=== PATIENT | male | born 2000 | race Caucasian/White ===

== ENCOUNTER 2023-03-06 18:16 | Emergency (ER) | payer BC, SELFPAY ==
[2023-03-06 18:16] VITALS: BP 131/70; PULSE 72; RESP 18; TEMP 36.6; O2SAT 100
--- NOTE | 2023-03-06 18:57 | ED.GENADULT ---
HPI - General Adult General Chief complaint: Wound/Laceration Stated complaint: right hand laceration Time Seen by Provider: 03/06/23 18:57 History of Present Illness HPI narrative: The patient is a 22-year-old male who sustained a laceration to the base of the right thumb with a knife as he was working on a car. No loss of sensation. Has received his tetanus immunization for school. Full range of motion of his fingers. No other injuries. History of asthma but no wheezing. No other complaints. Related Data Allergies Allergy/AdvReac Type Severity Reaction Status Date / Time No Known Allergies Allergy Verified 03/06/23 18:26 Review of Systems Review of Systems: All systems reviewed & are unremarkable except as noted in HPI and below Constitutional: Constitutional: Reports as per HPI, Reports no additional constitutional complaints, Denies chills, Denies excessive sweating, Denies fatigue, Denies fever(s), Denies headache(s) and Denies weakness Eyes: Eyes: Reports as per HPI, Reports no additional eye complaints, Denies change in vision and Denies photophobia ENT: Reports system reviewed and no additional complaints, except as documented, Reports as per HPI, Denies dysphagia, Denies vertigo, Denies dizziness, Denies headache(s), Denies lip swelling, Denies nasal congestion, Denies sore throat, Denies throat swelling and Denies tongue swelling Cardiovascular: Cardiovascular: Reports as per HPI, Reports no additional cardiovascular complaints, Denies chest pain, Denies syncope, Denies rapid heart rate and Denies dyspnea Respiratory: Respiratory: Reports as per HPI, Reports no additional respiratory complaints, Denies chest congestion, Denies cough, Denies dyspnea and Denies wheezing Gastrointestinal: Gastrointestinal: Reports as per HPI, Reports no additional gastrointestinal complaints, Denies abdominal pain, Denies constipation, Denies dysphagia, Denies diarrhea, Denies nausea and Denies vomiting Genitourinary: Genitourinary: Reports as per HPI, Denies hematuria, Denies oliguria, Denies dysuria, Denies urinary frequency, Denies urinary incontinence and Denies urinary urgency Musculoskeletal: Musculoskeletal: Reports no additional musculoskeletal complaints, Denies back pain, Denies myalgias, Denies arthralgias, Denies joint swelling and Denies numbness Integumentary/Breasts: Skin/Breast: Reports system reviewed and no additional complaints, except as docu, Denies pruritus, Denies erythema, Denies rash and Denies skin ulcer Comments: Laceration of the base of the right thumb Neurologic: Reports system reviewed and no additional complaints, except as documented, Reports as per HPI, Denies confusion, Denies vertigo, Denies dizziness, Denies syncope, Denies headache(s), Denies focal weakness, Denies numbness and Denies weakness Psychiatric: Psychiatric: Reports as per HPI, Denies anxiety, Denies confusion, Denies depression, Denies homicidal ideation and Denies suicidal ideation Endocrine: Endocrine: Reports no additional endocrine complaints, Denies excessive sweating, Denies fatigue, Denies polydipsia and Denies polyuria Hematologic/Lymphatic: Hematologic/Lymphatic: Reports no additional hematologic/lymphatic complaints, Denies easy bleeding and Denies easy bruising Allergic/Immunologic: Allergic/Immunologic: Reports no additional allergic/immunologic complaints, Denies lip swelling, Denies throat swelling, Denies tongue swelling and Denies wheezing Exam Const: General: healthy appearing, no acute distress, alert and well nourished; No confusion or ill appearing Nutritional Appearance: well nourished Orientation/consciousness: patient oriented x3 and No confusion Limitations: no limitations HENMT: Head: normal to inspection Ears: external ears normal Face/Nose/Sinus: Normal external nose present and normal facial exam Face and sinus: normal facial exam Mouth: Yes Normal oral and palatal mucosa present and Yes moist mucous membr
[2023-03-06] MEDS: ACETAMINOPHEN 500 MG TABLET 1000 MG PO (19:18)
[2023-03-06] MEDS: IBUPROFEN 600 MG TABLET PO (19:19)
[2023-03-06] MEDS: CEPHALEXIN 500 MG CAPSULE PO (19:19)
[2023-03-06] MEDS: LIDOCAINE HCL 1% LOCAL INJ 10 ML VIAL INFILTRATE (19:19)
[2023-03-06] MEDS: NEOMYCIN/POLYMYXIN/BACITRACIN OINTMENT 15 GM TUBE 1 APPLIC TOPICAL (19:56)
[2023-03-06 20:06] VITALS: BP 100/66; PULSE 88; RESP 20; TEMP 36.7; O2SAT 100
== END 2023-03-06 20:08 | disposition home or self-care (01) ==
PROVIDERS: Emergency Provider Emergency Medicine
DX: S61.011A Laceration without foreign body of right thumb without damage to nail, initial encounter (principal); W26.0XXA Contact with knife, initial encounter
CPT/HCPCS: 12001; 99283; A9270

== ENCOUNTER 2023-03-16 12:25 | Emergency (ER) | payer BC, SELFPAY ==
[2023-03-16 12:28] VITALS: BP 113/74; PULSE 69; RESP 18; TEMP 36.8; O2SAT 99
--- NOTE | 2023-03-16 13:08 | ED.WOUNDLAC ---
HPI - Wound/Laceration General Chief Complaint: Wound/Laceration Stated Complaint: wound check Time Seen by Provider: 03/16/23 12:26 Source: patient Mode of arrival: ambulatory Limitations: no limitations History of Present Illness HPI narrative: patient had laceration that was repaired approximately 8 to 9 days ago in the ER and the patient did attempt to remove the sutures and the area looks relatively well approximated 1 suture remaining that he could not remove and that is white presents to the ER there is no drainage no redness no warmth or tenderness has good range of motion and his right thumb. Onset (ago): day(s) Location: other Extremity Location: Right: hand ( lateral thumb area) Related Data Home Medications Medication Instructions Recorded Confirmed No Home Medications 03/16/23 03/16/23 Allergies Allergy/AdvReac Type Severity Reaction Status Date / Time No Known Allergies Allergy Verified 03/06/23 18:26 Review of Systems Review of Systems: All systems reviewed & are unremarkable except as noted in HPI and below PMFSH Past Medical History Medical History Patient denies medical problems Exam Const: General: healthy appearing Nutritional Appearance: well nourished Orientation/consciousness: patient oriented x3 Limitations: no limitations HENMT: Head: normal to inspection Eyes: Conjunctivae: conjunctivae normal GI: GI Palp: Yes Soft to palpation Auscultation: normal bowel sounds Skin: Wounds: wounds noted Other: wound area looks relatively well approximated has 1 suture remaining on the lateral aspect of his right proximal thumb Neuro: General: patient oriented x3 Cranial nerves: Yes Nystagmus not present Speech: normal speech Extrem: General: normal to inspection Psych: Mental Status: mental status grossly normal Affect: normal affect Course Course Emergency Course: suture removed from the right proximal lateral thumb area patient tolerated the removal of the suture well no bleeding there is currently no drainage no warmth or tenderness. Has good range of motion with no numbness or tingling. Vital Signs Vital signs: Vital Signs Temperature 36.8 C 03/16/23 12:28 Pulse Rate 69 03/16/23 12:28 Respiratory Rate 18 03/16/23 12:28 Blood Pressure 113/74 03/16/23 12:28 Pulse Oximetry 99 03/16/23 12:28 Oxygen Delivery Room Air 03/16/23 12:28 Temperature 36.8 C 03/16/23 12:28 Pulse Rate 69 03/16/23 12:28 Respiratory Rate 18 03/16/23 12:28 Blood Pressure 113/74 03/16/23 12:28 Pulse Oximetry 99 03/16/23 12:28 Oxygen Delivery Room Air 03/16/23 12:28 Procedures Laceration Laceration 1: Date: 03/16/23 Time: 13:11 ====== Skin Level ====== ====== Subcutaneous Layer ====== ====== Muscle Layer ====== ====== Tendon Layer ====== Dressing: One suture removed from the lateral aspect of proximal right thumb patient tolerated procedure well with no blood loss there is no drainage no warmth or tenderness have good range of motion Critical Care Time Critical Care Time Critical Care Time: No Discharge Plan Discharge Clinical Impression: Encounter for removal of sutures Patient Disposition: Home, Self-Care Condition: Stable Instructions: Antibiotic Form, Stitches Removal (ED) Additional Instructions: advised to use Neosporin daily to affected wound x3 days follow up with primary if symptoms persist or worsen. Prescriptions: No Action No Home Medications Follow-up/Referrals: UNKNOWN,DOCTOR [Primary Care Provider] - Time of Disposition: 13:13
== END 2023-03-16 13:20 | disposition home or self-care (01) ==
PROVIDERS: Emergency Provider Emergency Medicine
DX: Z48.02 Encounter for removal of sutures (principal)
CPT/HCPCS: 99281

== ENCOUNTER 2025-07-14 19:39 | Emergency (ER) | payer SELFPAY ==
[2025-07-14 19:45] VITALS: BP 120/66; PULSE 86; RESP 18; TEMP 37.2; O2SAT 99
--- NOTE | 2025-07-14 19:49 | ED.SKABFB ---
HPI - Skin/Abscess/Foreign Bdy General Chief complaint: Skin/Abscess/Foreign Body Stated complaint: rash Time Seen by Provider: 07/14/25 19:45 Source: patient Mode of arrival: ambulatory Limitations: no limitations History of Present Illness HPI narrative: 25-year-old otherwise healthy here with the complaints of rash for past few days. He has been weed eating recently.taking Benadryl with minimal relief , denies any SOB MD complaint: rash Onset (ago): day(s) (2) Location: generalized Severity: moderate Quality: pruritic Pain Consistency: constant Relieving factors: topical medication Exacerbating factors: none Context: none Associated symptoms: denies other symptoms Treatments prior to arrival: none Related Data Allergies Allergy/AdvReac Type Severity Reaction Status Date / Time No Known Allergies Allergy Verified 03/06/23 18:26 Review of Systems Review of Systems: All systems reviewed & are unremarkable except as noted in HPI and below Constitutional: Constitutional: Reports no additional constitutional complaints Eyes: Eyes: Reports no additional eye complaints ENT: Reports system reviewed and no additional complaints, except as documented Cardiovascular: Cardiovascular: Reports no additional cardiovascular complaints Respiratory: Respiratory: Reports no additional respiratory complaints Gastrointestinal: Gastrointestinal: Reports no additional gastrointestinal complaints Genitourinary: Genitourinary: Reports no additional male genitourinary complaints Musculoskeletal: Musculoskeletal: Reports no additional musculoskeletal complaints Integumentary/Breasts: Skin/Breast: Reports rash Neurologic: Reports system reviewed and no additional complaints, except as documented Psychiatric: Psychiatric: Reports no additional psychiatric complaints Hematologic/Lymphatic: Hematologic/Lymphatic: Reports no additional hematologic/lymphatic complaints PMFSH Past Medical History Medical History Patient denies medical problems Exam Narrative: GENERAL: Well-appearing, well-nourished, and in no acute distress. HEAD: Normocephalic, atraumatic. EYES: PERRLA and EOMI. ENT: Nares clear, no rhinorrhea or epistaxis. Mucous membranes moist. NECK: Supple. CHEST: Clear to auscultation. No respiratory distress. HEART: Regular rate and rhythm. No murmur heard. Normal peripheral pulses. EXTREMITIES: Normal range of motion. No edema. SKIN: Warm, dry, has erythematous rash on ext. NEURO: No focal deficits. Alert and oriented x3. PSYCH: Normal mood and affect. Course Vital Signs Vital signs: Vital Signs Temperature 37.2 C 07/14/25 19:45 Pulse Rate 86 07/14/25 19:45 Respiratory Rate 18 07/14/25 19:45 Blood Pressure 120/66 07/14/25 19:45 Pulse Oximetry 99 07/14/25 19:45 Oxygen Delivery Room Air 07/14/25 19:45 Temperature 37.2 C 07/14/25 19:45 Pulse Rate 86 07/14/25 19:45 Respiratory Rate 18 07/14/25 19:45 Blood Pressure 120/66 07/14/25 19:45 Pulse Oximetry 99 07/14/25 19:45 Oxygen Delivery Room Air 07/14/25 19:45 Discharge Plan Discharge Clinical Impression: Contact dermatitis Qualifiers: Contact dermatitis type: unspecified Contact dermatitis trigger: unspecified trigger Qualified Code(s): L25.9 - Unspecified contact dermatitis, unspecified cause Patient Disposition: Home Condition: Stable Instructions: Contact Dermatitis (DC) Additional Instructions: take Benadryl as needed , Prednisone as prescribed. Patient Language: [place]raini Prescriptions: New prednisone 20 mg tablet 20 mg PO BID Qty: 14 0RF Follow-up/Referrals: UNKNOWN,DOCTOR [Non-Staff] Gilmer Chaudhari MD [Physician, Internal Medicine] Time of Disposition: 20:07
[2025-07-14 20:14] VITALS: BP 118/75; PULSE 80; RESP 20; TEMP 37.1; O2SAT 99
== END 2025-07-14 20:14 | disposition home or self-care (01) ==
PROVIDERS: Emergency Provider Family Medicine; Referring Provider Internal Medicine
DX: L25.9 Unspecified contact dermatitis, unspecified cause (principal)
CPT/HCPCS: 99283; J7512